=== PATIENT | male | born 1940 | race Hispanic/Latino ===

== ENCOUNTER 2019-03-16 05:42 | Day surgery (SDC) | payer OTHER ==
[2019-03-16] MEDS ORDERED: TROP 1%/CYCLOPEN 1%/PHENYL 2% DROPS ONE (05:55)
[2019-03-16] MEDS ORDERED: MOXIFLOXACIN HCL (OPHTH) 1 DROP DROPS ONE (05:55)
[2019-03-16] MEDS ORDERED: PROPARACAINE 0.5% OPHTH SOL 15 ML BTTL ONE (05:55)
[2019-03-16] MEDS ORDERED: MIDAZOLAM INJ 2 MG/2 ML VIAL ONE (08:18)
[2019-03-16] MEDS ORDERED: PROPARACAINE 0.5% OPHTH SOL 15 ML BTTL RIGHT_EYE ONE (08:20)
[2019-03-16] MEDS ORDERED: DEXAMETHASONE 0.1% OPHTH SOL 1 DROP RIGHT_EYE ONE ×2 (08:26→08:37)
[2019-03-16] MEDS ORDERED: MOXIFLOXACIN HCL (OPHTH) 1 DROP DROPS RIGHT_EYE ONE ×2 (08:26→08:36)
[2019-03-16] MEDS ORDERED: LIDOCAINE 1% MPF 2 ML VIAL INJ ONE (08:26)
[2019-03-16] MEDS ORDERED: BRIMONIDINE 0.2% OPHTH DROPS RIGHT_EYE ONE ×2 (08:27→08:37)
[2019-03-16] MEDS ORDERED: TOBRAMYCIN SULF 0.3 % OPHT SOL 1 DROP RIGHT_EYE ONE ×2 (08:27→08:37)
== END 2019-03-16 09:21 | disposition home or self-care (01) ==
LOC: AMB 05:42
PROVIDERS: ATTEND Ophthalmology
DX: H25.11 Age-related nuclear cataract, right eye (principal); I10 Essential (primary) hypertension; I25.10 Atherosclerotic heart disease of native coronary artery without angina pectoris; I25.2 Old myocardial infarction; K21.9 Gastro-esophageal reflux disease without esophagitis; E66.9 Obesity, unspecified; J44.9 Chronic obstructive pulmonary disease, unspecified; Z95.1 Presence of aortocoronary bypass graft; Z79.899 Other long term (current) drug therapy; Z87.891 Personal history of nicotine dependence